=== PATIENT | female | born 1995 | race Caucasian/White ===

== ENCOUNTER 2017-11-16 20:42 | Emergency (ER) | payer OTHER ==
[~2017-11-16] VITALS: Ht 149.9 cm; Wt 113.0 kg
[~2017-11-16 20:42] MED LIST: CETI10TA84 PO; MELA3TAB PO; MONT4GRA PO; PRED20TA PO
[2017-11-16 20:45] VITALS: TEMP 36.7; Ht 149.9 cm; Wt 113.0 kg
--- NOTE | 2017-11-16 21:45 | EMERGENCY ROOM VISIT NOTE ---
History Report prepared by Riri: Carlito Chavez Under the Supervision of: Dr. Martin Zelaya M.D. First contact with patient: 20:50 Chief Complaint: ABDOMINAL PAIN Stated Complaint: RIGHT UPPER ABDOMEN, NAUSEA History of Present Illness The patient is a 22 year old female who presents to the Emergency Room with complaints of worsening RUQ abdominal pain that began a couple of weeks ago. She states the pain is exacerbated with "burping". She has had associated symptoms of nausea, gas, and diarrhea that began 1 day ago. Patient denies eating breakfast, lunch, and dinner today. She states she only "had a couple of crackers" prior to arrival. Patient is present with her mother. Mother states the patient has an appointment at [facility] in 4 days. Source of History: patient Onset: Couple of weeks ago Position: abdomen (RUQ) Timing: worsening Modifying Factors (Worsening): breathing (Burping) Associated Symptoms: + nausea, + diarrhea Note: Patient has gas. Review of Systems See HPI for pertinent positives & negatives. A total of 10 systems reviewed and were otherwise negative. Past Medical & Surgical No pertinent past medical history. Family History No pertinent family history. Social History Smoking Status: Never Smoker Housing Status: lives with family Current/Historical Medications Scheduled Cetirizine (Zyrtec), 10 MG PO QAM Dicyclomine Hcl (Bentyl), 1 CAP PO TID Fluticasone Propionate (Flovent Hfa), 2 PUFFS INH BID Fluticasone Propionate (Nasal) (Flonase Allergy Relief), 2 SPRAYS KYE DAILY Montelukast Sodium (Singulair), 10 MG PO QPM Sulfa/Trimethoprim (Bactrim Ds 800MG/160MG), 1 TAB PO BID Allergies Coded Allergies: No Known Allergies (Unverified , 12/30/13) Physical Exam Vital Signs Date Time Temp Pulse Resp B/P (MAP) Pulse Ox O2 Delivery O2 Flow Rate FiO2 11/17/17 00:09 112 18 132/93 97 11/16/17 23:10 107 20 141/100 94 Room Air 11/16/17 22:30 108 18 129/83 97 Room Air 11/16/17 20:45 36.7 114 20 203/119 98 Room Air Physical Exam GENERAL: Patient is a healthy-appearing well-nourished female HEAD: Normocephalic atraumatic EYES: Ocular movements intact pupils equal and react to light OROPHARYNX mucous membranes are moist no exudates present no erythema or edema present NECK: Supple no nuchal rigidity CHEST: Good equal expansion LUNGS: Clear and equal to auscultation CARDIAC: Normal S1 and S2 ABDOMEN: Tenderness in RUQ. No guarding BACK: No CVA tenderness EXTREMITIES: No pain upon palpation normal muscle strength in all groups no clubbing cyanosis or edema NEURO: Patient is following commands and answering questions appropriately. Alert and oriented x3 Cranial Nerves 2-12 grossly intact Medical Decision & Procedures ER Provider Diagnostic Interpretation: Radiology results as stated below per my review and radiologist interpretation: ABDOMINAL ULTRASOUND, RIGHT UPPER QUADRANT HISTORY: Right upper quadrant abdominal pain.. COMPARISON: None. FINDINGS: Pancreas: The pancreatic head and tail are obscured by overlying bowel gas. The remaining portions of the pancreas are within normal limits. Liver: The liver is echogenic consistent with fatty change. Gallbladder: No gallbladder wall thickening. No gallstones. CBD: 4 mm. Right kidney: No hydronephrosis. IMPRESSION: 1. Normal gallbladder. No gallstones. 2. Hepatic steatosis. Electronically signed by: Ben Jones M.D. 11/16/2017 10:54 PM Laboratory Results 11/16/17 21:30 Red Blood Count 5.36, Mean Corpuscular Volume 92.0, Mean Corpuscular Hemoglobin 31.5, Mean Corpuscular Hemoglobin Concent 34.3, Mean Platelet Volume 10.3, Neutrophils (%) (Auto) 88.6, Lymphocytes (%) (Auto) 4.9, Monocytes (%) (Auto) 6.4, Eosinophils (%) (Auto) 0.0, Basophils (%) (Auto) 0.0, Neutrophils # (Auto) 5.98, Lymphocytes # (Auto) 0.33, Monocytes # (Auto) 0.43, Eosinophils # (Auto) 0.00, Basophils # (Auto) 0.00 11/16/17 21:30 Test 11/16/17 21:30 11/16/17 22:29 White Blood Count 6.75 K/uL (4.8-10.8) Red Blood Count 5.36 M/uL (4.2-5.4) Hemoglobin 16.9 g/dL (12.0-16.0) Hematocrit 49.3 % (37-47) Mean Corpuscular Volume 92.0 fL (80-100) Mean Corpuscular Hemoglobin 31.5 pg (25-34) Mean Corpuscular Hemoglobin Concent 34.3 g/dl (32-36) Platelet Count 213 K/uL (130-400) Mean Platelet Volume 10.3 fL (7.4-10.4) Neutrophils (%) (Auto) 88.6 % Lymphocytes (%) (Auto) 4.9 % Monocytes (%) (Auto) 6.4 % Eosinophils (%) (Auto) 0.0 % Basophils (%) (Auto) 0.0 % Neutrophils # (Auto) 5.98 K/uL (1.4-6.5) Lymphocytes # (Auto) 0.33 K/uL (1.2-3.4) Monocytes # (Auto) 0.43 K/uL (0.11-0.59) Eosinophils # (Auto) 0.00 K/uL (0-0.5) Basophils # (Auto) 0.00 K/uL (0-0.2) RDW Standard Deviation 42.8 fL (36.4-46.3) RDW Coefficient of Variation 12.8 % (11.5-14.5) Immature Granulocyte % (Auto) 0.1 % Immature Granulocyte # (Auto) 0.01 K/uL (0.00-0.02) Anion Gap 7.0 mmol/L (3-11) Est Creatinine Clear Calc Drug Dose 99.3 ml/min Estimated GFR () 93.1 Estimated GFR (Non- 80.3 BUN/Creatinine Ratio 14.7 (10-20) Calcium Level 9.6 mg/dl (8.5-10.1) Total Bilirubin 1.4 mg/dl (0.2-1) Direct Bilirubin 0.2 mg/dl (0-0.2) Aspartate Amino Transf (AST/SGOT) 10 U/L (15-37) Alanine Aminotransferase (ALT/SGPT) 18 U/L (12-78) Alkaline Phosphatase 52 U/L (45-117) Total Protein 8.5 gm/dl (6.4-8.2) Albumin 4.2 gm/dl (3.4-5.0) Lipase 156 U/L (73-393) Urine Color DK YELLOW Urine Appearance CLOUDY (CLEAR) Urine pH 5.0 (4.5-7.5) Urine Specific [place] 1.030 (1.000-1.030) Urine Protein NEG (NEG) Urine Glucose (UA) NEG (NEG) Urine Ketones 1+ (NEG) Urine Occult Blood TRACE (NEG) Urine Nitrite NEG (NEG) Urine Bilirubin NEG (NEG) Urine Urobilinogen NEG (NEG) Urine Leukocyte Esterase SMALL (NEG) Urine WBC (Auto) >30 /hpf (0-5) Urine RBC (Auto) 0-4 /hpf (0-4) Urine Hyaline Casts (Auto) 5-10 /lpf (0-5) Urine Epithelial Cells (Auto) >30 /lpf (0-5) Urine Bacteria (Auto) 2+ (NEG) Urine Test NEG (NEG) Labs reviewed by ED physician. Medications Administered Medications (Trade) Dose Ordered Sig/Bridget Route Start Time Stop Time Status Last Admin Dose Admin Ondansetron HCl (Zofran Inj) 4 mg NOW STAT IV 11/16/17 22:03 11/16/17 22:04 DC 11/16/17 22:08 4 MG Ceftriaxone Sodium (Rocephin Inj) 1 gm NOW STAT IV 11/16/17 22:59 11/16/17 23:00 DC 11/16/17 23:31 1 GM ED Course 0: Past medical records reviewed. The patient was evaluated in room A4. A complete history and physical examination was performed. 3: Zofran Inj 4mg IV, Dilaudid Inj 1mg IV 2259: Rocephin Inj 1gm IV 2340: Upon reexamination the patient is resting comfortably. I discussed results and treatment plan with the patient. She verbalizes agreement and understanding. The patient is ready for discharge. Medical Decision Differential diagnosis: Etiologies such as appendicitis, diverticulitis, PUD, biliary pathology, UTI, pancreatitis, obstruction, mesenteric ischemia, aortic pathology, infections, inflammatory bowel disease, renal colic, as well as others were entertained. This is a 22-year-old female who presents emergency department complaining of right upper quadrant abdominal pain. The patient has a soft benign abdominal examination and in addition is afebrile and has a normal CBC. An IV was established, patient given Zofran as well as Dilaudid. Repeat examination revealed improvement the patient's symptoms. I do feel that the patient is well enough to be discharged home. She has a normal ultrasound of the right upper quadrant. Patient was started on Rocephin and I will continue her on bactrim at home. Medication Reconcilliation Current Medication List: was personally reviewed by me Blood Pressure Screening Patient's blood pressure: Elevated blood pressure Blood pressure disposition: Referred to PCP Impression Primary Impression: UTI (urinary tract infection) Scribe Attestation The scribe's documentation has been prepared under my direction and personally reviewed by me in its entirety. I confirm that the note above accurately reflects all work, treatment, procedures, and medical decision making performed by me. Departure Information Dispostion Home / Self-Care Prescriptions Dicyclomine Hcl (BENTYL) 10 Mg Cap 1 CAP PO TID for 30 Days, #90 CAP Prov: Martin Zelaya MD 11/16/17 Sulfa/Trimethoprim (Bactrim Ds 800MG/160MG) Tab 1 TAB PO BID for 7 Days, #14 TAB Prov: Martin Zelaya MD 11/16/17 Referrals Boyd Archer M.D. (PCP) Forms HOME CARE DOCUMENTATION FORM, IMPORTANT VISIT INFORMATION Patient Instructions Abdominal Pain - [facility], Diet Clear Liquid Dc, [facility] Additional Instructions Clear liquid diet next 48 hours Culture results are usually available in approx 48 hours You have been examined and treated today on an emergency basis only. This is not a substitute for, or an effort to provide, complete comprehensive medical care. It is impossible to recognize and treat all injuries or illnesses in a single emergency department visit. It is therefore important that you follow up closely with Dr Archer. Call as soon as possible for an appointment. Thank you for your time and consideration. I look forward to speaking with you again soon. Please don't hesitate to call us if you have any questions. Problem Qualifiers Primary Impression: UTI (urinary tract infection) Urinary tract infection type: acute cystitis Hematuria presence: without hematuria Qualified Codes: N30.00 - Acute cystitis without hematuria
[2017-11-16 21:50] LABS: HEMATOCRIT 49.3 % (37-47); HEMOGLOBIN 16.9 g/dL (12.0-16.0); IG# 0.01 K/uL (0.00-0.02); LYMPH % 4.9 %; LYMPH ABS # 0.33 K/uL (1.2-3.4); MEAN CORPUSCULAR HEMOGLOBIN 31.5 pg (25-34); MEAN CORPUSCULAR HGB CONC 34.3 g/dl (32-36); MEAN PLATELET VOLUME 10.3 fL (7.4-10.4); MONO % 6.4 %; MONO ABS # 0.43 K/uL (0.11-0.59); NEUT % 88.6 %; NEUT ABS # 5.98 K/uL (1.4-6.5); PLATELET COUNT 213 K/uL (130-400); RED CELL DISTRIBUTION WIDTH CV 12.8 % (11.5-14.5); RED CELL DISTRIBUTION WIDTH SD 42.8 fL (36.4-46.3); WHITE BLOOD COUNT 6.75 K/uL (4.8-10.8)
[2017-11-16] MEDS ORDERED: FLUT0.15 NAE (21:50)
[2017-11-16] MEDS ORDERED: FLVHFA110 INH (21:50)
[2017-11-16] MEDS ORDERED: MONT1TAB3 PO (21:50)
[2017-11-16] MEDS ORDERED: ONDANSETRON INJ 2 MG/ML 2 ML VIAL IV STA (22:03)
[2017-11-16] MEDS ORDERED: HYDROmorphone INJ 1 MG/ML SYR IV STA (22:03)
[2017-11-16 22:19] LABS: ALBUMIN 4.2 gm/dl (3.4-5.0); CALCIUM 9.6 mg/dl (8.5-10.1); CREATININE 0.99 mg/dl (0.60-1.20); POTASSIUM 3.8 mmol/L (3.5-5.1)
[2017-11-16 22:24] LABS: TOTAL PROTEIN 8.5 gm/dl (6.4-8.2)
--- NOTE | 2017-11-16 22:55 | DIAGNOSTIC IMAGING REPORT ---
ABDOMINAL ULTRASOUND, RIGHT UPPER QUADRANT HISTORY: Right upper quadrant abdominal pain.. COMPARISON: None. FINDINGS: Pancreas: The pancreatic head and tail are obscured by overlying bowel gas. The remaining portions of the pancreas are within normal limits. Liver: The liver is echogenic consistent with fatty change. Gallbladder: No gallbladder wall thickening. No gallstones. CBD: 4 mm. Right kidney: No hydronephrosis. IMPRESSION: 1. Normal gallbladder. No gallstones. 2. Hepatic steatosis. Electronically signed by: Ben Jones M.D. 11/16/2017 10:54 PM Dictated Date/Time: 11/16/2017 10:53 PM
[2017-11-16] MEDS ORDERED: CEFTRIAXONE SOD INJ 1 GM ADDVIAL IV STA (22:59)
[2017-11-16] MEDS ORDERED: SULF800T23 PO (23:23)
[2017-11-16] MEDS ORDERED: DICY10CA55 PO (23:24)
[2017-11-17 00:09] VITALS: BP 132/93; PULSE 112; O2SAT 97
== END 2017-11-17 00:10 | disposition home or self-care (01) ==
LOC: C.EDB 20:43 → C.EDA 11-17 00:10
DX: N30.00 Acute cystitis without hematuria (principal); R10.11 Right upper quadrant pain; R11.0 Nausea; R14.3 Flatulence; R19.7 Diarrhea, unspecified